=== PATIENT | female | born 1995 | race Caucasian/White ===

== ENCOUNTER 2018-10-24 19:37 | Emergency (ER) | payer OTHER ==
[2018-10-24] MEDS ORDERED: DEXAMETHASONE SOD PHOSPHATE 10MG/ML 1ML VIAL ONE (19:43)
[2018-10-24] MEDS ORDERED: IPRATROPIUM/ALBUTEROL SULFATE 3 ML SOLUTION IH ONE (19:59)
== END 2018-10-25 00:56 | disposition home or self-care (01) ==
LOC: EDH 19:37
DX: T59.4X4A Toxic effect of chlorine gas, undetermined, initial encounter (principal); J68.9 Unspecified respiratory condition due to chemicals, gases, fumes and vapors; K21.9 Gastro-esophageal reflux disease without esophagitis; Z88.8 Allergy status to other drugs, medicaments and biological substances; Y92.34 Swimming pool (public) as the place of occurrence of the external cause
CPT/HCPCS: 71045 ×2; 94640; 96374; 99284; J1100

== ENCOUNTER → 2019-12-29 | Outpatient (CLI) | payer OTHER ==
[~2019-12-29] MED LIST: SINCALIDE 5 MCG ML VIAL IV ONE
== END | disposition home or self-care (01) ==
LOC: RAH 09:44
PROVIDERS: ATTEND Internal Medicine Gastroenterology
DX: K76.0 Fatty (change of) liver, not elsewhere classified (principal); R10.11 Right upper quadrant pain; R14.0 Abdominal distension (gaseous)
CPT/HCPCS: 76700; 78227; A9537; J2805